=== PATIENT | male | born 1970 | race Caucasian/White ===

== ENCOUNTER 2018-01-16 04:16 | Emergency (ER) | payer OTHER ==
[~2018-01-16] VITALS: Ht 177.8 cm; Wt 86.2 kg
[~2018-01-16 04:16] MED LIST: CIPRO XR500 MG PO; KEFLEX500 MG PO; VICODIN 5/500 505 MG PO; VICODIN 500 MG-1 TAB PO; VICODIN ES 7501 TAB PO; ZOFRAN ODT8 MG PO
[2018-01-16] MEDS ORDERED: FLONASE ALLERG9.9 ML NAS (04:33)
[2018-01-16] MEDS ORDERED: CLARITIN-D 24 H1 TAB PO (04:33)
[2018-01-16] MEDS ORDERED: BENADRYL ALLERG25 M5 PO (04:33)
== END 2018-01-16 04:50 | disposition home or self-care (01) ==
LOC: ED 04:16
DX: J30.2 Other seasonal allergic rhinitis (principal); R19.7 Diarrhea, unspecified; R11.2 Nausea with vomiting, unspecified